=== PATIENT | male | born 1995 | race Caucasian/White ===

== ENCOUNTER 2017-03-26 16:27 | Emergency (ER) | payer MEDICAID, OTHER ==
[~2017-03-26] VITALS: Ht 162.6 cm; Wt 65.8 kg
[2017-03-26 16:27] VITALS: BP_SYST 142
[2017-03-26 17:25] VITALS: BP_SYST 138
== END 2017-03-26 17:25 ==
LOC: SED 16:27
DX: Z04.1 Encounter for examination and observation following transport accident (principal)
CPT/HCPCS: 99283